=== PATIENT | male | born 1980 | race Caucasian/White ===

== ENCOUNTER → 2016-12-24 | Outpatient (CLI) | payer BC ==
--- NOTE | 2016-12-24 15:24 | Diagnostic Imaging Report ---
Ultrasound of the soft tissues of the neck. INDICATION: Right neck swelling. FINDINGS: Area of swelling is examined with no obvious abnormality seen. Prominence of deep muscles in the region appears to be present. No fluid collection is noted. IMPRESSION: No fluid collection or obvious mass. Prominence of underlying muscles in the region of the swelling seen. Correlate clinically and with enhanced CT scan or MRI if needed. Dictated by: Dictated on workstation # [id number]
== END ==
LOC: RAD 13:43
PROVIDERS: ATTEND Nurse Practitioner
DX: R22.1 Localized swelling, mass and lump, neck (principal); M54.2 Cervicalgia
CPT/HCPCS: 76536